=== PATIENT | male | born 1955 | race Caucasian/White ===

== ENCOUNTER 2021-05-05 13:15 | Emergency (ER) | payer MEDICARE, SELFPAY ==
[2021-05-05 13:28] VITALS: BP 108/71; PULSE 61; RESP 16; TEMP 36.3; O2SAT 100
--- NOTE | 2021-05-05 13:33 | ED.GENADULT ---
HPI - General Adult General Chief complaint: Skin/Abscess/Foreign Body Stated complaint: poss spider bite Time Seen by Provider: 05/05/21 13:33 Source: patient Mode of arrival: ambulatory Limitations: no limitations History of Present Illness HPI narrative: 65-year-old male patient presents to the [facility] with complaints of a wound to the abdomen area that started about 2 days ago. Patient states that he found an old jacket in the garage and put it on on and states he noticed later symptoms wound with a puncture Fernando on his abdomen on Thursday. Patient states because it is started to spread now toward the right breast area. Does feel warm to the touch. Denies fevers, body aches or chills. Related Data Home Medications Medication Instructions Recorded Confirmed atorvastatin 80 mg PO DAILY 05/05/21 05/05/21 cholecalciferol (vitamin D3) 50 mcg PO DAILY 05/05/21 05/05/21 fluoxetine 40 mg PO DAILY 05/05/21 05/05/21 latanoprost 1 drp EACH EYE DAILY 05/05/21 05/05/21 mecobalamin (vitamin B12) 1,000 mcg PO DAILY 05/05/21 05/05/21 timolol 1 drp EACH EYE DAILY 05/05/21 05/05/21 warfarin [Coumadin] 4 mg PO DAILY 05/05/21 05/05/21 Allergies Allergy/AdvReac Type Severity Reaction Status Date / Time No Known Allergies Allergy Verified 05/05/21 13:37 Review of Systems Review of Systems: CONSTITUTIONAL: Denies fever, chills, or sweats. EYES: Denies visual changes, redness, or discharge. ENT: Denies rhinorrhea, congestion, sore throat, or otalgia. CARDIOVASCULAR: Denies chest pain, palpitations, or edema. RESPIRATORY: Denies cough or dyspnea. GASTROINTESTINAL: Denies abdominal pain, nausea, vomiting, or diarrhea. GENITOURINARY: Denies dysuria or hematuria. SKIN: Denies rash or itching. Positive wound to abdomen x2 days MUSCULOSKELETAL: Denies back pain, joint pain, or myalgia. NEUROLOGIC: Denies headache, numbness, or weakness. PSYCHIATRIC: Denies anxiety or depression. [facility] Past Medical History Medical History (Updated 05/05/21 @ 13:43 by ANASTASIYA Patel) Carpal tunnel syndrome Glaucoma Hypercholesteremia Surgical History Surgical History (Updated 05/05/21 @ 13:36 by ANASTASIYA Patel) Aortic valve replaced History of hernia surgery Comments At the time of my signature I agree with nursing past medical history, surgical, social, and family history. There is no relevant family history pertinent to the presenting complaint. Exam Narrative: GENERAL: Well-appearing, well-nourished, and in no acute distress. HEAD: Normocephalic, atraumatic. EYES: PERRLA and EOMI. ENT: Nares clear, no rhinorrhea or epistaxis. Mucous membranes moist. NECK: Supple. No lymphadenopathy CHEST: Clear to auscultation. No respiratory distress. HEART: Regular rate and rhythm. No murmur heard. Normal peripheral pulses. ABDOMEN: Soft, nontender, nondistended, normal active bowel sounds. EXTREMITIES: Normal range of motion. No edema. SKIN: Warm, dry, no rash. Patient has a punctate fernando in the middle of some surrounding erythema that measures approximately 7 cm. The erythema does streak up towards the right breast which measures approximately 18 cm. There is slight warmth to the touch. NEURO: No focal deficits. Alert and oriented x3. Course Course Level of Care: Express Care Visit Vital Signs Vital signs: Vital Signs Temperature 36.3 C L 05/05/21 13:28 Pulse Rate 61 05/05/21 13:28 Respiratory Rate 16 05/05/21 13:28 Blood Pressure 108/71 05/05/21 13:28 Pulse Oximetry 100 05/05/21 13:28 Temperature 36.3 C L 05/05/21 13:28 Pulse Rate 61 05/05/21 13:28 Respiratory Rate 16 05/05/21 13:28 Blood Pressure 108/71 05/05/21 13:28 Pulse Oximetry 100 05/05/21 13:28 Vital signs reviewed Medical Decision Making Differential Diagnosis Differential Diagnosis: Differential diagnosis: Abscess, cellulitis, hidradenitis, laceration, puncture wound. Plan of care for patient is to discharge home with
== END 2021-05-05 13:52 | disposition home or self-care (01) ==
PROVIDERS: Emergency Provider Nurse Practitioner Family; PCP Internal Medicine
DX: L03.311 Cellulitis of abdominal wall (principal); H40.9 Unspecified glaucoma; E78.00 Pure hypercholesterolemia, unspecified; Z95.2 Presence of prosthetic heart valve
CPT/HCPCS: 99213; G0463